=== PATIENT | male | born 1975 | race Caucasian/White ===

== ENCOUNTER 2021-08-28 18:08 | Emergency (ER) | payer OTHER ==
[~2021-08-28] VITALS: Ht 167.6 cm; Wt 70.3 kg
[2021-08-28 18:36] VITALS: BP 103/68
--- NOTE | 2021-08-28 18:53 | NUR ---
Patient discharged to home in stable condition. Written and verbal after care instructions given. Patient verbalizes understanding of instruction.
== END 2021-08-28 18:53 | disposition home or self-care (01) ==
LOC: ER 18:17
DX: K40.90 Unilateral inguinal hernia, without obstruction or gangrene, not specified as recurrent (principal); Z90.89 Acquired absence of other organs; Z60.2 Problems related to living alone